=== PATIENT | male | born 1950 | race African-American/Black ===

== ENCOUNTER 2018-04-29 06:11 | Day surgery (SDC) | payer OTHER, MEDICAID ==
[2018-04-29] MEDS ORDERED: PROPOFOL 60 ML (08:08)
[2018-04-29] MEDS ORDERED: LIDOCAINE 2% (SDV) 5 ML INJ (08:08)
== END 2018-04-29 12:44 | disposition home or self-care (01) ==
LOC: GIL 06:11
DX: Z12.11 Encounter for screening for malignant neoplasm of colon (principal); K57.90 Diverticulosis of intestine, part unspecified, without perforation or abscess without bleeding; K62.1 Rectal polyp; K64.4 Residual hemorrhoidal skin tags; K29.70 Gastritis, unspecified, without bleeding; K29.80 Duodenitis without bleeding; I10 Essential (primary) hypertension; E78.5 Hyperlipidemia, unspecified
CPT/HCPCS: 43239; 88305; 88312